=== PATIENT | male | born 1985 | race Caucasian/White ===

== ENCOUNTER 2024-03-01 09:15 | Emergency (ER) | payer MEDICAID, SELFPAY ==
[2024-03-01 09:20] VITALS: BP 131/90; PULSE 76; RESP 18; TEMP 36.7; O2SAT 100; BMI 34.2
--- NOTE | 2024-03-01 10:01 | XRR_ITS ---
PROCEDURE INFORMATION: Exam: XR Chest Exam date and time: 03/01/2024 10:29 AM Age: 38 years old Clinical indication: Pain; Angina pectoris; Additional info: Chest pain TECHNIQUE: Imaging protocol: Radiologic exam of the chest. Views: 1 view. COMPARISON: No relevant prior studies available. FINDINGS: Tubes, catheters and devices: None. Lungs: The lungs appear clear. Pleural spaces: No pleural effusion. No pneumothorax. Heart/Mediastinum: Mediastinum and brenda appear unremarkable. Bones/joints: No acute bony abnormality identified. XR/XR chest 1V portable [id number] IMPRESSION: No evidence for an acute cardiopulmonary process.
--- NOTE | 2024-03-01 10:01 | ECG_ITS ---
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 Measurements Intervals [place] Rate: 79 P: 25 PA: 168 QRS: -14 QRSD: 91 T: 14 QT: 355 QTc: 409 Interpretive Statements SINUS RHYTHM MODERATE VOLTAGE CRITERIA FOR LVH, CONSIDER NORMAL VARIANT [MEETS CRITERIA IN ONE OF: R(aVL), S(V1), R(V5), R(V5/V6)+S(V1)] No previous ECG available for comparison Electronically Signed On 03-01-2024 20:05:21 DRY KILN FEEDER by Octavio Hatch M.D. [id number]
[2024-03-01 10:48] LABS: Basophils % 0.7 %; Eosinophils # 0.1 10^3/uL (0.0-0.8); Eosinophils % 1.5 %; Hematocrit 45.6 % (37-53); Lymphocytes # 2.1 10^3/uL (0.8-4.8); Lymphocytes % 34.5 %; Mean Corpuscular Hemoglobin 30.9 pg (27-33); Mean Platelet Volume 9.6 fL (7.4-10.4); Monocytes # 0.3 10^3/uL (0.2-0.9); Monocytes % 5.6 %; Neutrophils # 3.47 10^3/uL (1.8-7.7); Neutrophils % 57.5 %; Nucleated Red Blood Cells % 0 %; Platelet Count 224 10^3/cmm (157-399); Red Blood Count 5.01 10^6/uL (3.85-5.65); Red Cell Distribution Width 12.4 % (12.1-15.1); White Blood Count 6.03 10^3/uL (3.29-11.43)
[2024-03-01 11:11] LABS: Troponin(5th) Baseline < 6 ng/L (0-15)
[2024-03-01 11:18] LABS: Alanine Aminotransferase 14 U/L (0-41); Albumin Level 4.9 g/dL (3.5-5.2); Alkaline Phosphatase 59 U/L (40-130); Anion Gap 13.5 (5-19); Aspartate Amino Transferase 16 U/L (0-40); Blood Urea Nitrogen 13 mg/dL (6-20); Calcium 9.8 mg/dL (8.5-10.5); Carbon Dioxide 26 mmol/L (22-29); Chloride 106 mmol/L (98-107); Creatinine Clr Calc Pharmacy 168.4303; Globulin 3.1 g/dL (1.3-4.6); Glomerular Filtration Rate 108.2 mL/min (90-130); Glucose 101 mg/dL (65-115); Osmolality Calculated 292 mOsm/kg (285-295); Potassium 4.5 mmol/L (3.5-5.1); Sodium 141 mmol/L (136-145); Thyroid Stimulating Hormone 1.29 uIU/mL (0.27-4.20); Total Bilirubin 0.9 mg/dL (0.15-1.2)
--- NOTE | 2024-03-01 11:39 | ED_ITS ---
HPI - Chest Pain 2 General: Chief Complaint: Chest Pain Stated Complaint: cp, sob Time Seen by Provider: 03/01/24 11:28 Source: patient Mode of arrival: ambulatory Limitations: no limitations History of Present Illness: Patient is a 38-year-old male who presents to ED today with a complaint of chest pain. He states chest pain began around 3 AM this morning while at rest. Feels like it radiated to his left arm. Upon arrival here he tells me chest pain is pretty well resolved. He does feel like this may be anxiety related as he has a longstanding history of anxiety. He states he lost a service animal number months ago and has had worse anxiety since this. He states overall he has been feeling fatigued. He had an episode of lightheadedness earlier today that brought me to my knees . No syncopal episode. He does complain of feeling a little short of breath. Had a mild URI recently. Patient concerned stating he takes chronic stimulant medications for ADHD and previously used to eat [employer] every day and because of such thinks my heart is going to explode or its clogged . No recent surgeries. He has no complaints of lower extremity swelling or calf pain. Vitals are completely normal upon arrival. MD complaint: chest pain Onset (ago): hour(s) Timing of current episode: now resolved Prior episodes: Yes Onset: during rest Pain location: left chest Pain radiation: left arm Severity: moderate Quality: tightness Relieving factors: nothing Exacerbating factors: nothing Associated symptoms: Reports dyspnea; Deny abdominal pain, fever(s), nausea, palpitations, syncope or vomiting Treatment prior to arrival: none Risk Factors: Coronary artery disease risk factors: none Thoracic aortic dissection risk factors: none Related Data Home Medications Medication Instructions Recorded Confirmed dextroamphetamine-amphetamine 15 1 tab PO BID 03/01/24 03/01/24 mg tablet Allergies Allergy/AdvReac Type Severity Reaction Status Date / Time No Known Allergies Allergy Verified 03/01/24 09:25 Review of Systems 2 Const: Denies: fever(s), chills, body aches, fatigue or malaise Eyes: Denies: change in vision or blurry vision Card: Reports: chest pain and pre-syncope; Denies: palpitations, irregular heart rhythm, edema, swelling of feet/ankles, lightheadedness, syncope, dyspnea on exertion, orthopnea, leg pain with exertion or acrocyanosis Resp: Reports: dyspnea; Denies: productive cough, non-productive cough, wheezing, pain on inspiration, change in phlegm color or hemoptysis GI: Denies: abdominal pain, nausea, vomiting, heartburn or diarrhea : Denies: flank pain, difficulty urinating, dysuria or urinary frequency Musc: Denies: neck pain, back pain, extremity pain, extremity swelling or joint pain Skin/Breast: Denies: rash Neuro: Denies: headache(s), numbness in extremities, weakness in extremities, sensory changes, difficulty walking, dizziness or confusion Physical Exam 2 Const: COMMON NORMALS: no acute distress, average body habitus, patient oriented x3, no limitations, healthy appearing, alert and well nourished HENMT: COMMON NORMALS: normocephalic and atraumatic HEAD & SCALP: n ormocephalic and atraumatic Eye: COMMON NORMALS: no scleral icterus Neck/C-Spine: COMMON NORMALS: full ROM, no lymphadenopathy, supple and no meningeal signs Chest: COMMONS NORMALS: normal inspection of the chest and normal palpation of entire chest wall Resp: COMMON NORMALS: normal respiratory effort and clear to auscultation bilaterally AUSCULTATION: clear to auscultation bilaterally Cardio: COMMON NORMALS: regular rate and regular rhythm RATE: regular rate RHYTHM: regular rhythm GI: COMMON NORMALS: Normal to inspection, nondistended, normoactive bowel sounds present, Soft to palpation, non-tender, No hepatosplenomegaly present and no masses PALPATION: Yes Soft to palpation and Yes No hepatosplenomegaly present : COMMON NORMALS: Yes no CVA tenderness BLADDER/KIDNEY EXAM: Yes no CVA tenderness Back/Pelvis: COMMON NORMALS: no CVA tenderness and thoracic and lumbar spine normal to inspection Extremity: COMMON NORMALS: normal to inspection, capillary refill normal, no clubbing, cyanosis or edema, no calf tenderness and no pedal edema GENERAL: Y es normal exam except as noted Neuro: HANY COMA SCALE: document GCS findings Hany coma scale eye opening: Spontaneous Hany coma scale verbal response: Orientated Hany coma scale motor response: Obey commands [place] coma scale total score: 15 COMMON NORMALS: patient oriented x3, CN's II-XII intact bilaterally, moves all extremities, no focal motor deficits, no sensory deficits noted and gait normal SENSORIUM/ORIENTATION: Yes alert MENINGEAL SIGNS: Yes no meningeal signs Skin: COMMON NORMALS: no rashes or lesions noted GENERAL SKIN EXAM: no rashes or lesions noted Course 2 Vital Signs: Vital signs: Vital Signs Temperature 98.1 F 03/01/24 09:20 Pulse Rate 65 03/01/24 12:21 Respiratory Rate 18 03/01/24 12:21 Blood Pressure 137/83 03/01/24 12:21 Pulse Oximetry 97 03/01/24 12:21 Oxygen Delivery Me thod Room Air 03/01/24 12:11 MDM - Chest Pain Medical Decision Making Patient appears no acute distress. His vital signs are stable. Blood work including CBC, CMP, D-dimer, baseline troponin, TSH are all unremarkable. His baseline and repeat EKGs are nonischemic. CXR is unremarkable. Patient will be allowed discharge with return precautions. Recommend he follow-up with primary care. Medical Records I reviewed the patient's medical records. Lab Data I reviewed the patient's lab results. 03/01/24 10:39 03/01/24 10:39 Radiology Impressions Chest X-Ray 03/01/24 10:01 IMPRESSION: No evidence for an acute cardiopulmonary process. Laboratory Results WBC 6.03 10^3/uL (3.29-11.43) 03/01/24 10:39 RBC 5.01 10^6/uL (3.85-5.65) 03/01/24 10:39 Hgb 15.50 g/dL (11.27-16.99) 03/01/24 10:39 Hct 45.6 % (37-53) 03/01/24 10:39 MCV 91.0 fl (82-101) 03/01/24 10:39 MCH 30.9 pg (27-33) 03/01/24 10:39 MCHC 34.0 g/dL (30-55) 03/01/24 10:39 RDW 12.4 % (12.1-15.1) 03/01/24 10:39 Plt Count 224 10^3/cmm (157-399) 03/01/24 10:39 MPV 9.6 fL (7.4-10.4) 03/01/24 10:39 Neut % (Auto) 57.5 % 03/01/24 10:39 Lymph % (Auto) 34.5 % 03/01/24 10:39 [place] % (Auto) 5.6 % 03/01/24 10:39 Eos % (Auto) 1.5 % 03/01/24 10:39 Baso % (Auto) 0.7 % 03/01/24 10:39 Neut # (Auto) 3.47 10^3/uL (1.8-7.7) 03/01/24 10:39 Lymph # (Auto) 2.1 10^3/uL (0.8-4.8) 03/01/24 10:39 [place] # (Auto) 0.3 10^3/uL (0.2-0.9) 03/01/24 10:39 Eos # (Auto) 0.1 10^3/uL (0.0-0.8) 03/01/24 10:39 Baso # (Auto) 0.0 10^3/uL (0.0-0.1) 03/01/24 10:39 Nucleated RBC % (auto) 0 % 03/01/24 10:39 Nucleated RBCs # 0.0 /100WBC 03/01/24 10:39 D-Dimer 0.36 ug/mLFEU (0-0.59) 03/01/24 10:39 Sodium 141 mmol/L (136-145) 03/01/24 10:39 Potassium 4.5 mmol/L (3.5-5.1) 03/01/24 10:39 Chloride 106 mmol/L (98-107) 03/01/24 10:39 Carbon Dioxide 26 mmol/L (22-29) 03/01/24 10:39 Anion Gap 13.5 (5-19) 03/01/24 10:39 BUN 13 mg/dL (6-20) 03/01/24 10:39 Creatinine 0.8 mg/dL (0.7-1.2) 03/01/24 10:39 GFR Calculation 108.2 mL/min (90-130) 03/01/24 10:39 Glucose 101 mg/dL (65-115) 03/01/24 10:39 Calculated Osmolality 292 mOsm/kg (285-295) 03/01/24 10:39 Calcium 9.8 mg/dL (8.5-10.5) 12/23/24 10:39 Total Bilirubin 0.9 mg/dL (0.15-1.2) 03/01/24 10:39 AST 16 U/L (0-40) 03/01/24 10:39 ALT 14 U/L (0-41) 03/01/24 10:39 Alkaline Phosphatase 59 U/L (40-130) 03/01/24 10:39 Troponin T Baseline < 6 ng/L (0-15) 03/01/24 10:39 Total Protein 8.0 g/dL (6.6-8.7) 03/01/24 10:39 Albumin 4.9 g/dL (3.5-5.2) 03/01/24 10:39 Globulin 3.1 g/dL (1.3-4.6) 03/01/24 10:39 TSH 1.29 uIU/mL (0.27-4.20) 03/01/24 10:39 All radiology interpretation(s) finalized by discharge Discharge Plan Discharge Patient Disposition: Home Clinical Impression: Atypical chest pain Condition: Stable Prescriptions: No Action dextroamphetamine-amphetamine 15 mg tablet 1 tab PO BID Discharge Orders: Discharge ED (Routine); Ordered 03/01/24 Ordered By: April Naidu Activity Restrictions/Additional Instructions: As we discussed, please follow-up with primary care for further evaluation if symptoms persist. You may return to the emergency department for worsening pain, shortness of breath, passing out episodes, generally feeling well, concerns you may have. Coding Level of Care Code ED Morning Babysitter for Brenda López
[2024-03-01 12:06] LABS: D Dimer 0.36 ug/mLFEU (0-0.59)
--- NOTE | 2024-03-01 12:08 | ECG_ITS ---
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 Measurements Intervals [place] Rate: 60 P: 32 IA: 196 QRS: -11 QRSD: 96 T: 15 QT: 388 QTc: 388 Interpretive Statements SINUS RHYTHM MODERATE VOLTAGE CRITERIA FOR LVH, CONSIDER NORMAL VARIANT [MEETS CRITERIA IN ONE OF: R(aVL), S(V1), R(V5), R(V5/V6)+S(V1)] NONSPECIFIC ST ELEVATION [0.05+ mV ST ELEVATION] Compared to ECG 03/01/2024 09:18:04 ST (T wave) deviation now present Electronically Signed On 03-01-2024 20:27:23 NURSING PROGRAM CHAIR by Octavio Hatch M.D. [email or web address]
[2024-03-01 12:11] VITALS: BP 131/91; PULSE 70; RESP 16; O2SAT 98
--- NOTE | 2024-03-01 12:11 | PC.NURSE ---
pt states he doesnt want to give urine sample, magdalena notified and okayed.
[2024-03-01 12:21] VITALS: BP 137/83; PULSE 65; RESP 18; O2SAT 97
== END 2024-03-01 12:22 | disposition home or self-care (01) ==
PROVIDERS: Emergency Provider Physician Assistant
DX: R07.89 Other chest pain (principal)
CPT/HCPCS: 36415; 71045; 80053; 84443; 84484; 85025; 85378; 93005; 99285